=== PATIENT | female | born 1965 | race African-American/Black ===

== ENCOUNTER 2017-04-06 13:35 | Day surgery (SDC) | payer BC ==
[~2017-04-06] VITALS: Ht 172.7 cm; Wt 79.9 kg
[~2017-04-06 13:35] MED LIST: ALBUTEROL0.09 MG/A1 IH; HCTZ 25MG25 MG PO; MOTRIN 600600 MG/TAB PO; PEPCID 20MG TAB20 MG PO; PRINZIDE 25 MG-1 TAB PO; REGLAN 10MG10 MG/TAB PO
[2017-04-06 13:48] VITALS: BP 121/82; PULSE 82; TEMP 98.2
[2017-04-06] MEDS ORDERED: PROAIR HFA0.09 MG/AC IH (14:10)
[2017-04-06] MEDS ORDERED: ALEVE 220MG220 MG PO (14:10)
[2017-04-06 15:05] VITALS: BP 113/79; PULSE 67; TEMP 97.6
[2017-04-06 15:20] VITALS: BP 115/70; PULSE 57
[2017-04-06 15:35] VITALS: BP 113/78; PULSE 65
[2017-04-06 16:11] VITALS: BP 100/63; PULSE 62
== END 2017-04-06 15:50 | disposition home or self-care (01) ==
LOC: SDCO 13:35
DX: Z12.11 Encounter for screening for malignant neoplasm of colon (principal); I10 Essential (primary) hypertension; J45.909 Unspecified asthma, uncomplicated
CPT/HCPCS: J7030

== ENCOUNTER → 2018-03-02 | Outpatient (CLI) | payer BC ==
[~2018-03-02] MED LIST changes: +ALEVE 220MG220 MG PO; +PROAIR HFA0.09 MG/AC IH
== END ==
LOC: COL.RAD 07:30
DX: S46.811A Strain of other muscles, fascia and tendons at shoulder and upper arm level, right arm, initial encounter (principal); M24.112 Other articular cartilage disorders, left shoulder; Z98.890 Other specified postprocedural states

== ENCOUNTER → 2018-04-04 | Outpatient (CLI) | payer BC | LOC: MHCPAIN 13:48 | DX: M79.18 Myalgia, other site (principal); G89.29 Other chronic pain; M47.812 Spondylosis without myelopathy or radiculopathy, cervical region | CPT/HCPCS: G0463 ==

== ENCOUNTER → 2018-04-26 | Outpatient (CLI) | payer BC | LOC: MHCPAIN 13:44 | DX: M79.10 Myalgia, unspecified site (principal); M79.18 Myalgia, other site | CPT/HCPCS: J1040 ==

== ENCOUNTER → 2018-07-25 | Outpatient (CLI) | payer BC | LOC: MHCPAIN 13:49 | DX: G89.29 Other chronic pain (principal); M47.812 Spondylosis without myelopathy or radiculopathy, cervical region; M79.18 Myalgia, other site | CPT/HCPCS: G0463 ==

== ENCOUNTER → 2019-04-10 | Outpatient (CLI) | payer BC | LOC: MC.RAD 10:16 | DX: Z12.31 Encounter for screening mammogram for malignant neoplasm of breast (principal) ==

== ENCOUNTER 2019-07-04 09:54 | Emergency (ER) | payer BC ==
[~2019-07-04] VITALS: Ht 172.7 cm; Wt 80.5 kg
[2019-07-04 09:56] VITALS: TEMP 98
[2019-07-04 10:23] LABS: BASO # 0.1 (0.0-0.2); BASO % 1.1 % (0.0-2.0); EOS # 0.1 (0.0-0.7); EOS % 2.3 % (0-4.0); GRAN # 2.2 (1.4-6.5); GRAN % 50.1 % (42.2-75.2); HEMATOCRIT 36.6 % (37.0-47.0); LYMPH # 1.6 (1.2-3.4); LYMPH % 36.7 % (20.0-51.0); MEAN CELL VOLUME 92 fl (80.0-100.0); MEAN CORPUSCULAR HEMOGLOBIN 30 pg (27.0-31.0); MEAN CORPUSCULAR HGB CONC 33 g/dl (33.0-37.0); MEAN PLATELET VOLUME 9.3 fl (7.4-10.4); MONO # 0.4 (0.1-0.6); MONO % 9.6 % (1.7-9.3); PLATELET COUNT 352 K/mm3 (130-400); RED BLOOD COUNT 3.96 M/mm3 (4.10-5.30); REDCELL DISTRIBUTION WIDTH-CV 12.3 % (11.5-14.5)
[2019-07-04 10:35] LABS: ALANINE AMINOTRANSFERASE 21 U/L (9-52); ALBUMIN 4.3 gm/dL (3.5-5.0); ALKALINE PHOSPHATASE 125 U/L (50-136); ANION GAP 10 mmol/L (7-16); AST,SGOT 26 U/L (15-37); BILIRUBIN,TOTAL 0.4 mg/dL (0.0-1.0); BLOOD UREA NITROGEN 12 mg/dL (7-17); C-REACTIVE PROTEIN < 0.5 mg/dL (0.0-0.9); CALCIUM 9.1 mg/dL (8.4-10.2); CARBON DIOXIDE 23 mmol/L (22-30); CHLORIDE 111 mmol/L (98-107); CREATININE, serum 0.82 (0.52-1.25); GLUCOSE 106 mg/dL (74-106); SODIUM 143 mmol/L (137-145); TOTAL PROTEIN 7.6 gm/dL (6.4-8.2)
[2019-07-04 10:56] LABS: COLLECTION METHOD CLEAN CATCH
[2019-07-04 11:22] LABS: URINE APPEARANCE Clear; URINE COLOR Yellow
[2019-07-04 11:23] LABS: PH 5 (5-8); URINE BILIRUBIN Negative (NEGATIVE); URINE BLOOD Negative (NEGATIVE); URINE GLUCOSE Negative (NEGATIVE); URINE KETONE Negative (NEGATIVE); URINE LEUKOCYTE ESTERASE Negative (NEGATIVE); URINE NITRATE Negative (NEGATIVE); URINE PROTEIN(semi-quant) 1+ (NEGATIVE); URINE UROBILINOGEN Negative (NEGATIVE)
[2019-07-04 11:25] LABS: URINE BACTERIA Rare /hpf; URINE RBC None Seen /hpf
[2019-07-04] MEDS ORDERED: MEDROL 4MG DOSPA4 MG PO (11:48)
[2019-07-04] MEDS ORDERED: NORCO 325 MG-51 TAB PO (11:48)
[2019-07-04] MEDS ORDERED: FLEXERIL 1010 MG/TAB PO (11:48)
[2019-07-04 11:56] VITALS: BP 136/87; PULSE 62
== END 2019-07-04 12:02 | disposition home or self-care (01) ==
LOC: COL.ER 09:54
PROVIDERS: Physician Assistant
DX: S33.9XXA Sprain of unspecified parts of lumbar spine and pelvis, initial encounter (principal); J45.909 Unspecified asthma, uncomplicated; I10 Essential (primary) hypertension; Z98.51 Tubal ligation status; X50.0XXA Overexertion from strenuous movement or load, initial encounter
CPT/HCPCS: J1885

== ENCOUNTER 2020-03-20 14:40 | Outpatient (RCR) | payer OTHER ==
[~2020-03-20 14:40] MED LIST changes: +FLEXERIL 1010 MG/TAB PO; +MEDROL 4MG DOSPA4 MG PO; +NORCO 325 MG-51 TAB PO
== END 2020-04-07 12:31 | disposition home or self-care (01) ==
LOC: WSOH 14:40
DX: S39.012A Strain of muscle, fascia and tendon of lower back, initial encounter (principal); J45.909 Unspecified asthma, uncomplicated; Z87.891 Personal history of nicotine dependence; Z98.51 Tubal ligation status; Z98.890 Other specified postprocedural states; Y99.0 Civilian activity done for income or pay

== ENCOUNTER → 2021-01-14 | Outpatient (CLI) | payer BC | LOC: COL.RAD 07:05 | DX: R10.9 Unspecified abdominal pain (principal) ==

== ENCOUNTER 2021-09-16 09:06 | Emergency (ER) | payer BC ==
[~2021-09-16] VITALS: Ht 172.7 cm; Wt 83.6 kg
[2021-09-16 09:42] VITALS: TEMP 98.2
[2021-09-16] MEDS ORDERED: MEDROL 4MG DOSPA4 MG PO (10:56)
[2021-09-16] MEDS ORDERED: SKELAXIN 800MG800 MG PO (10:59)
[2021-09-16] MEDS ORDERED: NORCO 325 MG-51 TAB PO (11:00)
[2021-09-16 11:20] VITALS: BP 133/83; PULSE 89
== END 2021-09-16 11:20 | disposition home or self-care (01) ==
LOC: COL.ER 09:06
DX: M54.16 Radiculopathy, lumbar region (principal)
CPT/HCPCS: J1885; J2270

== ENCOUNTER 2021-11-05 15:10 | Outpatient (RCR) | payer BC, OTHER ==
[~2021-11-05 15:10] MED LIST changes: +SKELAXIN 800MG800 MG PO
== END 2021-11-10 | disposition still patient (30) ==
LOC: MKS.ESL.PT
DX: M54.41 Lumbago with sciatica, right side (principal)

== ENCOUNTER 2021-12-08 15:45 | Outpatient (RCR) | payer BC, OTHER | END 2021-12-10 | disposition home or self-care (01) | LOC: MKS.ESL.OT | DX: M77.9 Enthesopathy, unspecified (principal); M25.532 Pain in left wrist ==

== ENCOUNTER 2021-12-08 16:30 | Outpatient (RCR) | payer BC, OTHER | END 2021-12-10 | disposition still patient (30) | LOC: MKS.ESL.PT | DX: M54.41 Lumbago with sciatica, right side (principal) ==

== ENCOUNTER 2021-12-15 08:01 | Outpatient (RCR) | payer BC, OTHER | END 2022-01-10 | disposition home or self-care (01) | LOC: MKS.ESL.PT | DX: M54.41 Lumbago with sciatica, right side (principal) ==

== ENCOUNTER → 2021-12-16 | Outpatient (CLI) | payer BC | LOC: MHCPAIN 13:30 | DX: M47.817 Spondylosis without myelopathy or radiculopathy, lumbosacral region (principal); M53.3 Sacrococcygeal disorders, not elsewhere classified; M54.16 Radiculopathy, lumbar region | CPT/HCPCS: G0463 ==

== ENCOUNTER → 2021-12-24 | Outpatient (CLI) | payer BC | LOC: MHCPAIN 13:56 | DX: M47.816 Spondylosis without myelopathy or radiculopathy, lumbar region (principal); M53.3 Sacrococcygeal disorders, not elsewhere classified; M54.16 Radiculopathy, lumbar region | CPT/HCPCS: J1100; Q9967 ==

== ENCOUNTER 2022-01-08 14:56 | Outpatient (RCR) | payer BC, OTHER | END 2022-01-10 | disposition still patient (30) | LOC: MKS.ESL.PT | DX: M47.896 Other spondylosis, lumbar region (principal) ==

== ENCOUNTER 2022-01-08 16:00 | Outpatient (RCR) | payer BC, OTHER | END 2022-01-10 | disposition home or self-care (01) | LOC: MKS.ESL.OT | DX: M77.8 Other enthesopathies, not elsewhere classified (principal) ==

== ENCOUNTER → 2022-01-13 | Outpatient (CLI) | payer BC, OTHER | LOC: MHCPAIN 10:20 | DX: M47.897 Other spondylosis, lumbosacral region (principal); M54.16 Radiculopathy, lumbar region; M53.3 Sacrococcygeal disorders, not elsewhere classified | CPT/HCPCS: G0463 ==

== ENCOUNTER → 2022-01-25 | Outpatient (CLI) | payer BC, OTHER | LOC: MHCPAIN 13:32 | DX: M47.817 Spondylosis without myelopathy or radiculopathy, lumbosacral region (principal); M54.16 Radiculopathy, lumbar region; M53.3 Sacrococcygeal disorders, not elsewhere classified | CPT/HCPCS: J1100; Q9967 ==

== ENCOUNTER 2022-02-04 15:15 | Outpatient (RCR) | payer BC, OTHER | END 2022-02-10 | disposition home or self-care (01) | LOC: MKS.ESL.OT | DX: M77.8 Other enthesopathies, not elsewhere classified (principal) ==

== ENCOUNTER 2022-02-04 15:45 | Outpatient (RCR) | payer BC, OTHER | END 2022-02-10 | disposition home or self-care (01) | LOC: MKS.ESL.PT | DX: M47.896 Other spondylosis, lumbar region (principal) ==

== ENCOUNTER → 2022-02-23 | Outpatient (CLI) | payer BC, OTHER | LOC: MHCPAIN 15:17 | DX: M47.897 Other spondylosis, lumbosacral region (principal); M54.16 Radiculopathy, lumbar region; M53.3 Sacrococcygeal disorders, not elsewhere classified | CPT/HCPCS: G0463 ==

== ENCOUNTER → 2022-04-06 | Outpatient (CLI) | payer BC | LOC: MHCPAIN 15:17 | DX: M47.817 Spondylosis without myelopathy or radiculopathy, lumbosacral region (principal); M53.3 Sacrococcygeal disorders, not elsewhere classified; M54.50 Low back pain, unspecified | CPT/HCPCS: G0463 ==

== ENCOUNTER → 2022-08-11 | Outpatient (CLI) | payer OTHER | LOC: MHCPAIN 15:30 | DX: M47.897 Other spondylosis, lumbosacral region (principal); M54.17 Radiculopathy, lumbosacral region; I10 Essential (primary) hypertension | CPT/HCPCS: G0463 ==

== ENCOUNTER → 2022-09-10 | Outpatient (CLI) | payer OTHER | LOC: COL.RAD 12:11 | DX: M51.17 Intervertebral disc disorders with radiculopathy, lumbosacral region (principal); M48.07 Spinal stenosis, lumbosacral region; M47.27 Other spondylosis with radiculopathy, lumbosacral region ==

== ENCOUNTER → 2022-10-07 | Outpatient (CLI) | payer OTHER | LOC: MHCPAIN 14:23 | DX: M47.898 Other spondylosis, sacral and sacrococcygeal region (principal); M53.3 Sacrococcygeal disorders, not elsewhere classified; M54.50 Low back pain, unspecified; M46.1 Sacroiliitis, not elsewhere classified | CPT/HCPCS: G0260; J1040; Q9967 ==

== ENCOUNTER → 2023-02-22 | Outpatient (CLI) | payer OTHER | LOC: MC.RAD 15:19 | DX: Z12.31 Encounter for screening mammogram for malignant neoplasm of breast (principal); N64.89 Other specified disorders of breast ==

== ENCOUNTER → 2023-03-01 | Outpatient (CLI) | payer OTHER | LOC: MC.RAD 15:10 | DX: R92.8 Other abnormal and inconclusive findings on diagnostic imaging of breast (principal) ==

== ENCOUNTER → 2023-05-10 | Outpatient (CLI) | payer OTHER | LOC: MHCPAIN 14:05 | DX: M75.41 Impingement syndrome of right shoulder (principal); M75.51 Bursitis of right shoulder | CPT/HCPCS: J0665; J1040 ==

== ENCOUNTER 2023-06-27 14:13 | Emergency (ER) | payer OTHER ==
[~2023-06-27] VITALS: Ht 172.7 cm; Wt 81.8 kg
[2023-06-27 14:19] VITALS: TEMP 98.1
[2023-06-27 14:52] LABS: BASO # 0.1 K/mm3 (0.0-0.2); BASO % 0.7 % (0.0-2.0); EOS # 0.2 K/mm3 (0.0-0.7); EOS % 1.9 % (0.0-4.0); GRAN # 5.4 K/mm3 (1.4-6.5); GRAN % 66.8 % (42.2-75.2); HEMATOCRIT 36.4 % (37.0-47.0); LYMPH # 1.7 K/mm3 (1.2-3.4); LYMPH % 21.4 % (20.0-51.0); MEAN CELL VOLUME 93 fl (80.0-100.0); MEAN CORPUSCULAR HEMOGLOBIN 31 pg (27-31); MEAN CORPUSCULAR HGB CONC 33 g/dl (33.0-37.0); MEAN PLATELET VOLUME 9.5 fl (7.4-10.4); MONO # 0.7 K/mm3 (0.1-0.6); MONO % 8.7 % (1.7-9.3); PLATELET COUNT 371 K/mm3 (130-400)
[2023-06-27 15:11] LABS: ALBUMIN 3.5 gm/dL (3.5-5.0); BILIRUBIN,TOTAL 0.3 mg/dL (0.2-1.2); C-REACTIVE PROTEIN 1.82 mg/dL (0.00-0.50); CALCIUM 9.3 mg/dL (8.4-10.2); CREATININE, serum 0.94 mg/dL (0.57-1.11); POTASSIUM 3.7 mmol/L (3.5-4.5); TOTAL PROTEIN 7.1 gm/dL (6.2-8.1)
[2023-06-27 16:19] LABS: COLLECTION METHOD CLEAN CATCH
[2023-06-27 16:37] LABS: URINE APPEARANCE Clear (CLEAR/HAZY); URINE BLOOD Negative (NEGATIVE); URINE COLOR Yellow (YELLOW); URINE GLUCOSE Negative (NEGATIVE); URINE KETONE Negative (NEGATIVE); URINE NITRATE Negative (NEGATIVE); URINE PROTEIN(semi-quant) Negative (NEGATIVE); URINE UROBILINOGEN 0.2 E.U/dL (0.2-1.0)
[2023-06-27 16:38] LABS: URINE BACTERIA Rare /hpf (NONE SEEN); URINE RBC 0-2 /hpf (0-2)
[2023-06-27] MEDS ORDERED: ZOFRAN 4MG T4 MG/TAB PO (16:53)
[2023-06-27] MEDS ORDERED: BENTYL 20MG20 MG/TAB PO (16:53)
[2023-06-27 17:04] VITALS: BP 149/79; PULSE 58
== END 2023-06-27 17:13 | disposition home or self-care (01) ==
LOC: COL.ER 14:13
PROVIDERS: Physician Assistant
DX: K52.9 Noninfective gastroenteritis and colitis, unspecified (principal)
CPT/HCPCS: J1885; J2270; J7030; Q9967

== ENCOUNTER → 2023-07-08 | Outpatient (CLI) | payer OTHER ==
[~2023-07-08] MED LIST changes: +BENTYL 20MG20 MG/TAB PO; +ZOFRAN 4MG T4 MG/TAB PO
== END ==
LOC: COL.RAD 07:19
DX: M75.121 Complete rotator cuff tear or rupture of right shoulder, not specified as traumatic (principal)

== ENCOUNTER 2023-08-03 07:27 | Day surgery (SDC) | payer OTHER ==
[~2023-08-03] VITALS: Ht 172.7 cm; Wt 84.0 kg
[~2023-08-03 07:27] MED LIST changes: +LR 1,000 ML IV SCH
[2023-08-03] MEDS ORDERED: dexAMETHasone 10 MG/ML VIAL ONE (08:01)
[2023-08-03] MEDS ORDERED: Lidocaine PF 2% (20 MG/ML) 5 ML VIAL ONE (08:01)
[2023-08-03] MEDS ORDERED: Midazolam 2 MG/2 ML VIAL ONE (08:01)
[2023-08-03] MEDS ORDERED: fentaNYL 50 MCG/ML 2 ML VIAL ONE (08:01)
[2023-08-03] MEDS ORDERED: Ondansetron 4 MG/2 ML VIAL ONE (08:01)
[2023-08-03] MEDS ORDERED: NS 10 ML IV ONE (08:01)
[2023-08-03 08:34] VITALS: BP 132/69; PULSE 62; TEMP 97.9
[2023-08-03] MEDS ORDERED: PRINIVIL20 MG PO (08:38)
[2023-08-03] MEDS ORDERED: LYRICA 75MG CAP75 MG PO (08:38)
[2023-08-03] MEDS ORDERED: NORVASC 10MG10 MG PO (08:39)
[2023-08-03] MEDS ORDERED: ZANAFLEX2 MG PO (08:41)
[2023-08-03] MEDS ORDERED: EPINEPHrine 1 MG/1 ML Ampule IR ONE ×2 (09:48→09:50)
[2023-08-03] MEDS ORDERED: Morphine 4 MG/ML VIAL IV PRN (10:45)
[2023-08-03] MEDS ORDERED: oxyCODONE 5 MG TAB PO PRN ×2 (10:45)
[2023-08-03] MEDS ORDERED: Naloxone 0.4 MG/ML VIAL IV PRN (10:45)
[2023-08-03] MEDS ORDERED: CEPHALEXIN500 M1 PO (10:51)
[2023-08-03] MEDS ORDERED: NORCO 325 MG-51 TAB PO (10:51)
[2023-08-03 11:15] VITALS: BP 158/84; PULSE 61; TEMP 97
--- NOTE | 2023-08-03 11:15 | NUR ---
The patient arrived back to back to [place] [facility] from the recovery room at this time. The patient appears alert and oriented and denies any pain at this time. The patient does report feeling like she can't take a deep breath, the nurse spoke with the patient about how this sensation can be caused by the nerve block that was placed prior to surgery. The patient's oxygen saturation along with the rest her vital signs appear very stable. The pateint has a bulky dressing in place to her right shoulder that appears clean, dry and intact. The patient has a simple sling in place to her right arm due to the nerve block being intact. Post procedure vital signs were started at this time. Call light is within reach. The patient agrees to try some apple juice and a muffin. The patient denies any further needs at this time.
[2023-08-03 11:30] VITALS: BP 146/78; PULSE 60
--- NOTE | 2023-08-03 11:30 | NUR ---
The patient appeared to toleraet the juice and muffin well and requests some ice water at this time. Vital signs continue to appear stable. Call light remains within reach.
[2023-08-03 11:39] VITALS: TEMP 96.8
[2023-08-03] MEDS ORDERED: Acetaminophen 500 MG TAB PO SCH (11:45)
[2023-08-03 11:50] VITALS: BP 157/82; PULSE 64
--- NOTE | 2023-08-03 11:50 | NUR ---
The patient appears to be tolerating the water well. The voices a desire to ambulate to the bathroom and the patient assisted her with the patient using a steady gait. The patient voided without difficulty and voices a desire to be discharged home.
--- NOTE | 2023-08-03 12:00 | NUR ---
Discharge instructions were reviewed with the patient at this time. She verbalized understanding and have no questions for the nurse at this time. The patient's IV to her left hand was removed and a pressure dressing was applied to the site. The nurse assisted the patient to get dressed and she appeared to tolerate the activity well. The patient asked about getting paperwork filled out for work release. The nurse instructed the patient to go drop off the paperwork at Dr. Garza's office so it can be filled out by him to [facility].
--- NOTE | 2023-08-03 12:20 | NUR ---
The patient was escorted out to a private vehicle via wheelchair by GRAHAM De Souza. The patient's belongings and discharge paperwork were sent with her. The patient's son is present to drive her home.
[2023-08-03] MEDS ORDERED: Ibuprofen 800 MG TAB PO SCH (14:45)
== END 2023-08-03 12:20 | disposition home or self-care (01) ==
LOC: SDCO 07:27
DX: M75.41 Impingement syndrome of right shoulder (principal); M19.011 Primary osteoarthritis, right shoulder; Z87.891 Personal history of nicotine dependence
CPT/HCPCS: A4619; J0171; J0690; J1100; J2250; J2405; J2704; J2795; J3010; J7120

== ENCOUNTER 2023-12-07 15:30 | Outpatient (RCR) | payer OTHER ==
[~2023-12-07 15:30] MED LIST changes: +CEPHALEXIN500 M1 PO; -LR 1,000 ML IV SCH; +LYRICA 75MG CAP75 MG PO; +NORVASC 10MG10 MG PO; +PRINIVIL20 MG PO; +ZANAFLEX2 MG PO
== END 2023-12-11 ==
LOC: MKS.ESL.PT
DX: M75.101 Unspecified rotator cuff tear or rupture of right shoulder, not specified as traumatic (principal)

== ENCOUNTER → 2024-05-16 | Outpatient (CLI) | payer OTHER | LOC: MHCPAIN 09:48 | DX: M25.511 Pain in right shoulder (principal); M47.817 Spondylosis without myelopathy or radiculopathy, lumbosacral region; M48.061 Spinal stenosis, lumbar region without neurogenic claudication; M54.17 Radiculopathy, lumbosacral region | CPT/HCPCS: G0463 ==